=== PATIENT | male | born 1985 | race Caucasian/White ===

== ENCOUNTER 2017-07-10 09:17 | Emergency (ER) | payer MEDICAID, OTHER, SELFPAY ==
[~2017-07-10] VITALS: Ht 182.9 cm; Wt 114.1 kg
[2017-07-10 09:18] VITALS: BP 153/91
[2017-07-10] MEDS ORDERED: NORCOTAB PO (10:26)
[2017-07-10] MEDS ORDERED: CLEO300C2 PO (10:26)
[2017-07-10] MEDS ORDERED: CLINDAMYCIN 150 MG CAP PO ONE (10:30)
== END 2017-07-10 10:32 | disposition home or self-care (01) ==
LOC: M ED 09:17
DX: K04.7 Periapical abscess without sinus (principal); Z88.8 Allergy status to other drugs, medicaments and biological substances